=== PATIENT | female | born 1995 | race Two or more races ===

== ENCOUNTER 2022-11-11 00:34 | Observation (INO) | payer MEDICAID ==
[2022-11-11] MEDS ORDERED: PREN-96 PO (02:05)
== END 2022-11-11 02:29 | disposition home or self-care (01) ==
LOC: LDRP 00:34
PROVIDERS: ADMIT Obstetrics & Gynecology; ATTEND Obstetrics & Gynecology
DX: O62.9 Abnormality of forces of labor, unspecified (principal); O42.92 Full-term premature rupture of membranes, unspecified as to length of time between rupture and onset of labor; Z3A.39 39 weeks gestation of pregnancy
CPT/HCPCS: 59025; 81002; 84112; 94760; G0378; Q0114

== ENCOUNTER 2022-11-12 09:35 | Inpatient (IN) | payer MEDICAID ==
[~2022-11-12] VITALS: Ht 170.2 cm; Wt 90.7 kg
[~2022-11-12 09:35] MED LIST: PREN-96 PO
[2022-11-12] MEDS ORDERED: PHISODERM TOP SOLN 240ML BTL TOP PRN (10:15)
[2022-11-12] MEDS ORDERED: NITROGLYCERIN 0.4 MG SL TAB SL PRN (10:15)
[2022-11-12] MEDS ORDERED: BUTORPHANOL TARTRATE 2 MG/1 ML VIAL IV PRN ×2 (10:15)
[2022-11-12] MEDS ORDERED: WITCH HAZEL-GLYCERIN PAD TOP PRN (10:15)
[2022-11-12] MEDS ORDERED: PROMETHAZINE HCL 25 MG/ML 1ML IV PRN (10:15)
[2022-11-12] MEDS ORDERED: LIDOCAINE 2%HCL (LOCAL ANESTH.) INJ 20ML MDV IJ PRN (10:15)
[2022-11-12] MEDS ORDERED: DERMOPLAST 60ML BOTTLE TOP PRN (10:15)
[2022-11-12] MEDS ORDERED: MORPHINE SULFATE INJ 2 MG/ml SYRG IV PRN (10:15)
[2022-11-12 10:46] LABS: Basophils # (auto) 0 10 ^3/uL (0-0.2); Basophils % (auto) 0.3 % (0.0-2.0); Eosinophils # (auto) 0.1 10 ^3/uL (0-0.8); Eosinophils % (auto) 1.3 % (0.0-7.0); Hematocrit 37.1 % (36.0-46.0); Hemoglobin 12.6 g/dL (12.2-16.2); Lymphocytes # (auto) 1.4 10 ^3/uL (0.4-5.4); Lymphocytes % (auto) 18.2 % (10.0-50.0); Mean Corpuscular Hgb Conc. 34.1 g/dL (32.0-36.0); Mean Corpuscular Volume 90.9 fL (80.0-100.0); Monocytes # (auto) 0.8 10 ^3/uL (0-1.3); Monocytes % (auto) 10.1 % (0.0-12.0); Neutrophils # (auto) 5.5 10 ^3/uL (1.6-8.6); Neutrophils % (auto) 70.1 % (37.0-80.0); Red Blood Cells 4.08 10^6/uL (4.0-5.20); Red Cell Distribution Width 13.6 % (11.8-14.3); White Blood Cell 7.9 10^3/uL (4.4-10.8)
[2022-11-12] MEDS: LACTATED RINGER'S 1,000 ML IV SCH ×2 (10:49→23:14)
[2022-11-12 10:50] LABS: Urine Bacteria FEW /hpf (None Seen); Urine Blood Negative /uL (Negative); Urine Mucus FEW (None Seen); Urine Specific Gravity 1.021 (1.001-1.035); Urine WBC 13 /hpf (0 - 5)
[2022-11-12 10:58] LABS: Albumin 2.6 g/dL (3.4-5.0); Calcium 8.4 mg/dL (8.5-10.1); Potassium 3.1 mmol/L (3.5-5.1)
[2022-11-12 11:01] LABS: BUN/Creatinine Ratio 10.3; Bilirubin, Total 0.4 mg/dL (0.2-1.0); Total Protein 6.7 g/dL (6.4-8.2)
[2022-11-12 11:03] LABS: Alcohol, Urine < 3.0 mg/dL (0-10); Amphetamine Screen, Urine NEGATIVE (NEGATIVE); Barbiturate Scree,Urine NEGATIVE (NEGATIVE); Benzodiazephine Screen, Urine NEGATIVE (NEGATIVE); Cannabinoid Screen, Urine NEGATIVE (NEGATIVE); Cocaine Screen, Urine NEGATIVE (NEGATIVE); Opiate Scree,Urine NEGATIVE (NEGATIVE); Phencyclidine Screen, Urine NEGATIVE (NEGATIVE)
[2022-11-12 11:10] LABS: INR 0.92 (0.9-1.15); Partial Thromboplastin Time 28.9 sec (24.6-33.4)
[2022-11-12] MEDS: miSOPROStol 50 MCG per PRE-CUT 1/2 TAB PO PRN ×2 (11:44→15:41)
[2022-11-13] MEDS: miSOPROStol 50 MCG per PRE-CUT 1/2 TAB PO PRN ×2 (00:38→05:21)
[2022-11-13] MEDS: LACTATED RINGER'S 1,000 ML IV SCH ×3 (04:02→21:43)
[2022-11-13 07:06] LABS: RPR Non Reactive (Non Reactive)
[2022-11-13] MEDS ORDERED: POTASSIUM CHL 20 Meq TABLET PO ONE (07:15)
[2022-11-13] MEDS ORDERED: DINOPROSTONE 10MG VAG SUPP PV ONE (10:45)
== END 2022-11-14 01:31 | disposition home or self-care (01) | DRG 566 ==
LOC: LDRP 09:35
PROVIDERS: ADMIT Obstetrics & Gynecology; ATTEND Obstetrics & Gynecology
DX: O36.63X0 Maternal care for excessive fetal growth, third trimester, not applicable or unspecified (principal); Z20.822 Contact with and (suspected) exposure to COVID-19; Z3A.39 39 weeks gestation of pregnancy
CPT/HCPCS: 36415; 59025; 76815; 80053; 80307; 81001; 81002; 85025; 85610; 85730; 86592; 86850; 86900; 86901; 87426; 94760; 96360; 96361; G0378

== ENCOUNTER 2022-11-15 15:52 | Observation (INO) | payer MEDICAID | END 2022-11-15 17:37 | disposition home or self-care (01) | LOC: LDRP 15:52 → UNDOADMOB 15:52 → LDRP 16:03 | PROVIDERS: ADMIT Obstetrics & Gynecology; ATTEND Obstetrics & Gynecology | DX: O36.63X0 Maternal care for excessive fetal growth, third trimester, not applicable or unspecified (principal); Z3A.39 39 weeks gestation of pregnancy | CPT/HCPCS: 59025; 81002; 94760; G0378 ==

== ENCOUNTER 2022-11-18 08:19 | Observation (INO) | payer MEDICAID | END 2022-11-18 17:37 | disposition home or self-care (01) | LOC: UNDOADMOB 15:50 → LDRP 15:50 → UNDODISOB 17:37 | PROVIDERS: ADMIT Obstetrics & Gynecology; ATTEND Obstetrics & Gynecology | DX: O42.92 Full-term premature rupture of membranes, unspecified as to length of time between rupture and onset of labor (principal); Z3A.40 40 weeks gestation of pregnancy | CPT/HCPCS: 59025; 76818; 81002; 94762; G0378 ==

== ENCOUNTER 2022-11-20 12:07 | Observation (INO) | payer MEDICAID | END 2022-11-20 13:25 | disposition home or self-care (01) | LOC: LDRP 12:07 | PROVIDERS: ADMIT Obstetrics & Gynecology; ATTEND Obstetrics & Gynecology | DX: O69.81X0 Labor and delivery complicated by cord around neck, without compression, not applicable or unspecified (principal); O48.0 Post-term pregnancy; O26.893 Other specified pregnancy related conditions, third trimester; N89.8 Other specified noninflammatory disorders of vagina; O62.9 Abnormality of forces of labor, unspecified; O36.63X0 Maternal care for excessive fetal growth, third trimester, not applicable or unspecified; Z3A.40 40 weeks gestation of pregnancy | CPT/HCPCS: 59025; 76818; 81002; 94760; G0378 ==

== ENCOUNTER 2022-11-22 09:40 | Inpatient (IN) | payer MEDICAID ==
[~2022-11-22] VITALS: Ht 172.7 cm; Wt 90.7 kg
[2022-11-22] MEDS ORDERED: PHISODERM TOP SOLN 240ML BTL TOP PRN (10:15)
[2022-11-22] MEDS ORDERED: BUTORPHANOL TARTRATE 2 MG/1 ML VIAL IV PRN ×2 (10:15)
[2022-11-22] MEDS ORDERED: WITCH HAZEL-GLYCERIN PAD TOP PRN (10:15)
[2022-11-22] MEDS ORDERED: DERMOPLAST 60ML BOTTLE TOP PRN (10:15)
[2022-11-22] MEDS ORDERED: LIDOCAINE 2%HCL (LOCAL ANESTH.) INJ 20ML MDV IJ PRN (10:15)
[2022-11-22] MEDS ORDERED: PROMETHAZINE HCL 25 MG/ML 1ML IV PRN (10:15)
[2022-11-22] MEDS ORDERED: miSOPROStol 50 MCG per PRE-CUT 1/2 TAB PO PRN (10:45)
[2022-11-22] MEDS ORDERED: miSOPROStol 50 MCG per PRE-CUT 1/2 TAB ONE (10:59)
[2022-11-22 11:03] LABS: Basophils # (auto) 0 10 ^3/uL (0-0.2); Basophils % (auto) 0.4 % (0.0-2.0); Eosinophils # (auto) 0.1 10 ^3/uL (0-0.8); Eosinophils % (auto) 0.9 % (0.0-7.0); Hematocrit 38.6 % (36.0-46.0); Hemoglobin 13.2 g/dL (12.2-16.2); Lymphocytes # (auto) 1.4 10 ^3/uL (0.4-5.4); Lymphocytes % (auto) 18.2 % (10.0-50.0); Mean Corpuscular Hemoglobin 30.9 pg (28.0-32.0); Mean Corpuscular Volume 90.8 fL (80.0-100.0); Monocytes # (auto) 0.5 10 ^3/uL (0-1.3); Monocytes % (auto) 6.7 % (0.0-12.0); Neutrophils # (auto) 5.7 10 ^3/uL (1.6-8.6); Neutrophils % (auto) 73.8 % (37.0-80.0); Nucleated Red Blood Cells % 0.1 %; Red Blood Cells 4.26 10^6/uL (4.0-5.20); Red Cell Distribution Width 13.7 % (11.8-14.3); White Blood Cell 7.7 10^3/uL (4.4-10.8)
[2022-11-22 11:18] LABS: INR 0.87 (0.9-1.15); Partial Thromboplastin Time 29.8 sec (24.6-33.4)
[2022-11-22 11:23] LABS: Albumin 2.6 g/dL (3.4-5.0); Calcium 8.2 mg/dL (8.5-10.1); Potassium 3.1 mmol/L (3.5-5.1)
[2022-11-22 11:27] LABS: BUN/Creatinine Ratio 9.6; Bilirubin, Total 0.4 mg/dL (0.2-1.0); Total Protein 6.5 g/dL (6.4-8.2)
[2022-11-22 11:40] LABS: Alcohol, Urine < 3.0 mg/dL (0-10); Amphetamine Screen, Urine NEGATIVE (NEGATIVE); Barbiturate Scree,Urine NEGATIVE (NEGATIVE); Benzodiazephine Screen, Urine NEGATIVE (NEGATIVE); Cannabinoid Screen, Urine NEGATIVE (NEGATIVE); Cocaine Screen, Urine NEGATIVE (NEGATIVE); Opiate Scree,Urine NEGATIVE (NEGATIVE); Phencyclidine Screen, Urine NEGATIVE (NEGATIVE)
[2022-11-22 11:45] LABS: Urine Bacteria FEW /hpf (None Seen); Urine Blood Negative /uL (Negative); Urine Mucus FEW (None Seen); Urine Specific Gravity 1.019 (1.001-1.035); Urine WBC 2 /hpf (0 - 5)
[2022-11-22] MEDS ORDERED: ceFAZolin 1GM/50ML 50 ML IV ONE (14:14)
[2022-11-22] MEDS ORDERED: SODIUM CITR/CITRIC ACID ORAL SOLN 30 ML PO SCH (18:00)
[2022-11-22] MEDS: LACTATED RINGER'S 1,000 ML IV SCH ×2 (18:01→23:45)
[2022-11-22] MEDS ORDERED: MORPHINE SULF PF 5 MG/10 ML VIAL ONE (18:33)
[2022-11-22] MEDS ORDERED: TETRACAINE 1% INJ 2 ML VIAL IJ ONE (18:38)
[2022-11-22] MEDS ORDERED: ONDANSETRON HCL 4 MG/2 ML VIAL IV PRN ×2 (19:00→20:15)
[2022-11-22] MEDS ORDERED: NS/OXYTOCIN 20UNITS 1,000 ML IV SCH (19:00)
[2022-11-22] MEDS ORDERED: ceFAZolin 1GM/50ML 50 ML IV SCH (19:00)
[2022-11-22] MEDS ORDERED: HYDROmorphone HCL 2 MG/ML VL/or syr IV PRN ×2 (19:00→20:15)
[2022-11-22] MEDS ORDERED: BUPIVACAINE 0.25% INJ 50ML VIAL ONE (19:20)
[2022-11-22] MEDS ORDERED: LIDOCAINE W/ EPINEPHRINE 2% INJ 20ML VIAL ONE (19:22)
[2022-11-22] MEDS ORDERED: MIDAZOLAM HCL 2MG/2ML 2ml VIAL (1mg/ml) ONE (19:33)
[2022-11-22] MEDS ORDERED: fentaNYL CITRATE 100 MCG/2 ML VL ONE (19:33)
[2022-11-22] MEDS ORDERED: oxyTOCIN 10 UNIT/ML 10ML VIAL ONE (20:00)
[2022-11-22] MEDS ORDERED: diphenhdrAMINE HCL 50 MG/1 ML VL IV PRN (20:15)
[2022-11-22] MEDS ORDERED: KETOROLAC TROMETH 30 MG/ML 1ML VIAL IV PRN (20:15)
[2022-11-22] MEDS ORDERED: DexAMETHasone SOD PHOS 10MG/1ML VIAL INJ IV PRN (20:15)
[2022-11-22] MEDS ORDERED: NALBUPHINE HCL 10 MG/1ml INJECTION SUBCUT ONE (20:15)
[2022-11-22] MEDS ORDERED: NALOXONE HCL 0.4 MG/ML VIAL IV PRN (20:15)
[2022-11-22 21:00] VITALS: BP 121/80
[2022-11-22 22:00] VITALS: BP 123/82
[2022-11-22 23:00] VITALS: BP 121/62
[2022-11-23] VITALS (22 sets, daily range): BP systolic 100–130; BP diastolic 56–81
[2022-11-23] MEDS ORDERED: POTASSIUM CHL 20 Meq TABLET PO ONE (01:00)
[2022-11-23] MEDS: ceFAZolin 1GM/50ML 50 ML IV SCH ×3 (03:00→19:06)
[2022-11-23] MEDS ORDERED: TETANUS-DIPTH-ACEL PERTUSSIS 0.5ML SYR Tdap IM ONE (05:45)
[2022-11-23] MEDS: LACTATED RINGER'S 1,000 ML IV SCH (05:46)
[2022-11-23 07:31] LABS: Basophils # (auto) 0 10 ^3/uL (0-0.2); Basophils % (auto) 0.4 % (0.0-2.0); Eosinophils # (auto) 0.1 10 ^3/uL (0-0.8); Eosinophils % (auto) 0.7 % (0.0-7.0); Hematocrit 34.6 % (36.0-46.0); Hemoglobin 11.6 g/dL (12.2-16.2); Lymphocytes # (auto) 1.8 10 ^3/uL (0.4-5.4); Lymphocytes % (auto) 17.7 % (10.0-50.0); Mean Corpuscular Hemoglobin 30.5 pg (28.0-32.0); Mean Corpuscular Hgb Conc. 33.4 g/dL (32.0-36.0); Mean Corpuscular Volume 91.2 fL (80.0-100.0); Monocytes # (auto) 0.8 10 ^3/uL (0-1.3); Neutrophils # (auto) 7.4 10 ^3/uL (1.6-8.6); Neutrophils % (auto) 73.2 % (37.0-80.0); Red Blood Cells 3.79 10^6/uL (4.0-5.20); White Blood Cell 10.1 10^3/uL (4.4-10.8)
[2022-11-23 08:06] LABS: RPR Non Reactive (Non Reactive)
[2022-11-23] MEDS ORDERED: HYDROcodone-ACET 5/325MG TAB PO PRN (09:00)
[2022-11-23] MEDS: HYDROcodone-ACET 5/325MG TAB PO PRN ×2 (09:15→14:28)
[2022-11-23] MEDS: DOCUSATE CALCIUM 240 MG CAP PO SCH (10:04)
[2022-11-23] MEDS: DOCUSATE SOD 100 MG CAP PO SCH ×2 (10:04→22:00)
[2022-11-23] MEDS: SIMETHICONE 80 MG CHEWABLE TABLET PO SCH ×3 (11:50→22:26)
[2022-11-23] MEDS ORDERED: FLUCONAZOLE 100 MG TAB PO ONE (14:08)
[2022-11-23] MEDS: IBUPROFEN 800 MG TAB PO PRN (18:36)
[2022-11-24 03:15] VITALS: BP 125/88
[2022-11-24] MEDS: IBUPROFEN 800 MG TAB PO PRN ×3 (03:19→17:44)
[2022-11-24] MEDS: SIMETHICONE 80 MG CHEWABLE TABLET PO SCH ×4 (05:55→23:00)
[2022-11-24 06:56] VITALS: BP 122/80
[2022-11-24] MEDS: DOCUSATE CALCIUM 240 MG CAP PO SCH (09:30)
[2022-11-24] MEDS: DOCUSATE SOD 100 MG CAP PO SCH ×2 (09:30→21:32)
[2022-11-24 10:55] VITALS: BP 118/86
[2022-11-24] MEDS: HYDROcodone-ACET 5/325MG TAB PO PRN ×2 (12:11→20:57)
[2022-11-24] MEDS ORDERED: HYDR-4902 PO (12:16)
[2022-11-24] MEDS ORDERED: DOCU-94 PO (12:16)
[2022-11-24] MEDS ORDERED: IBUP800T27 PO (12:16)
[2022-11-24 15:00] VITALS: BP 111/69
[2022-11-24 19:15] VITALS: BP 122/73
[2022-11-24] MEDS ORDERED: BISACODYL 10 MG RECT SUPP PR ONE (21:00)
[2022-11-24 23:25] VITALS: BP 120/86
[2022-11-25] MEDS ORDERED: PREN-96 PO (00:42)
[2022-11-25] MEDS: IBUPROFEN 800 MG TAB PO PRN (03:02)
[2022-11-25 03:12] VITALS: BP 109/64
[2022-11-25] MEDS: HYDROcodone-ACET 5/325MG TAB PO PRN (04:50)
[2022-11-25] MEDS: SIMETHICONE 80 MG CHEWABLE TABLET PO SCH ×2 (06:00→12:00)
[2022-11-25 07:00] VITALS: BP 128/81
[2022-11-25] MEDS: DOCUSATE CALCIUM 240 MG CAP PO SCH (10:00)
[2022-11-25] MEDS: DOCUSATE SOD 100 MG CAP PO SCH (10:00)
== END 2022-11-25 14:45 | disposition home or self-care (01) | DRG 540 ==
LOC: LDRP 09:40
PROVIDERS: ADMIT Obstetrics & Gynecology; ATTEND Obstetrics & Gynecology
PROC: 10D00Z1 Extraction of Products of Conception, Low, Open Approach (ICD-10-PCS; principal; 2022-11-22 18:42)
DX: O48.0 Post-term pregnancy (principal); O61.9 Failed induction of labor, unspecified; O36.63X0 Maternal care for excessive fetal growth, third trimester, not applicable or unspecified; O69.81X0 Labor and delivery complicated by cord around neck, without compression, not applicable or unspecified; Z37.0 Single live birth; Z20.822 Contact with and (suspected) exposure to COVID-19; Z3A.40 40 weeks gestation of pregnancy
CPT/HCPCS: 36415; 59025; 80053; 80307; 81001; 84112; 84132; 85025; 85610; 85730; 86592; 86850; 86900; 86901; 87426; 90715; 94760; 94762; 96360; 96361; 96365; 96366; 96375; G0378; J0690; J1885; J2250; J2590; J3490